=== PATIENT | female | born 1995 | race African-American/Black ===

== ENCOUNTER 2017-08-17 18:27 | Emergency (ER) | payer SELFPAY ==
[~2017-08-17] VITALS: Ht 172.7 cm; Wt 63.5 kg
[2017-08-17 19:07] VITALS: BP 94/75
[2017-08-17 19:18] LABS: BASOPHILS % (AUTO) 0.7 % (0.0-2.0); EOSINOPHILS % (AUTO) 1.6 % (0.0-3.0); LYMPHOCYTES % (AUTO) 24.3 % (20.0-45.0); MEAN CORPUSCULAR HEMOGLOBIN 29.1 PG (27.0-31.0); MEAN CORPUSCULAR HGB CONC 34.3 G/DL (32.0-36.0); MEAN CORPUSCULAR VOLUME 85 FL (80-99); MEAN PLATELET VOLUME 6.5 FL (6.5-10.1); NEUTROPHILS % (AUTO) 64.5 % (45.0-75.0); PLATELET COUNT 220 K/UL (150-450); RED BLOOD COUNT 4.34 M/UL (4.20-5.40); WHITE BLOOD COUNT 8.8 K/UL (4.8-10.8)
[2017-08-17 19:19] LABS: APPEARANCE,URINE CLEAR; KETONES,URINE 1+ (NEGATIVE); LEUKOCYTE ESTERASE ,URINE NEGATIVE (NEGATIVE); NITRITE,URINE NEGATIVE (NEGATIVE); PH,URINE 6 (4.5-8.0); PROTEIN,URINE 1+ (NEGATIVE); UROBILINOGEN,URINE 1 MG/DL (0.0-1.0)
[2017-08-17 19:27] LABS: BACTERIA,URINE OCCASIONAL /HPF; SQUAMOUS EPITHELIAL CELL,UR FEW /LPF (NONE/OCC); WBC,URINE 0-2 /HPF (0 - 2)
[2017-08-17 19:35] LABS: ALANINE AMINOTRANSFERASE 17 U/L (3-33); ANION GAP 14 (5-15); ASPARTATE AMINO TRANSFERASE 17 U/L (5-40); CALCIUM 8.9 mg/dL (8.6-10.2); CARBON DIOXIDE 21 mEQ/L (20-30); CHLORIDE 98 mEQ/L (98-107); CREATININE 0.8 mg/dL (0.5-0.9); GLOMERULAR FILTRATION RATE > 60 mL/min (>60); HEMOLYSIS 2; POTASSIUM 3.5 mEQ/L (3.4-4.9); SODIUM 133 mEQ/L (135-145); TOTAL PROTEIN 7.4 g/dL (6.6-8.7)
[2017-08-17] MEDS ORDERED: ZOFRAN ODT4 MG ORAL (20:13)
[2017-08-17 20:20] VITALS: BP 107/74
[2017-08-17 20:25] VITALS: BP 107/74
--- NOTE | 2017-08-17 20:28 | Emergency Room Report ---
History of Present Illness General Chief Complaint: Complications Source: Patient Present Illness HPI [id number] [employer] patient with nausea and "cant keep anything down". States 9 weeks Just started following with OB last week. On vitamins, iron and reglan Had told OB about nausea, was given Rx Reglan. Was told if she continued to have trouble with nausea/vomiting, "go to ER." She denies abd pain, vaginal bleeding, urinary complaints, SOB, chest pain 2 previous pregnancies resulted in miscarriage and No other medical problems Allergies: Coded Allergies: No Known Allergies (Unverified , 08/17/17) Patient History Past Medical History: none Past Surgical History: none Pertinent Family History: none Social History: Denies: smoking, alcohol use, drug use Now: Yes : 3 Para: 0 Immunizations: UTD Reviewed Nursing Documentation: PMH: Agreed, PSxH: Agreed Review of Systems All Other Systems: negative except mentioned in HPI Physical Exam Vital Signs Date Time Temp Pulse Resp B/P (MAP) Pulse Ox O2 Delivery O2 Flow Rate FiO2 08/17/17 18:33 98.4 89 20 131/82 100 Room Air Sp02 EP Interpretation: reviewed, normal General Appearance: normal inspection, well appearing, no apparent distress, alert, GCS 15, non-toxic Head: normocephalic, atraumatic Eyes: bilateral eye PERRL, bilateral eye EOMI ENT: normal ENT inspection, hearing grossly normal, normal voice Neck: normal inspection, full range of motion, supple, no bony tend Respiratory: normal inspection, lungs clear, normal breath sounds, no respiratory distress, no retraction, no wheezing Cardiovascular #1: regular rate, rhythm, no edema Gastrointestinal: normal inspection, normal bowel sounds, non tender, soft, no guarding, no hernia, other - Gravid uterus Genitourinary: no CVA tenderness Musculoskeletal: normal inspection, back normal, normal range of motion, Carlos' s Sign negative Neurologic: normal inspection, alert, oriented x3, responsive, oil program compliance specialist III-XII nml as tested, motor strength/tone normal, speech normal Psychiatric: normal inspection, judgement/insight normal, mood/affect normal Skin: normal inspection, normal color, no rash Medical Decision Making Diagnostic Impression: Primary Impression: Nausea and vomiting during ER Course VSS. Afebrile. Labs reviewed: No leuks. H&H stable. No metabolic derangement. beta quant reviewed, appropriate No WBCs in urine Was hydrated with IVF and IV zofran Tolerating PO in ED - asking for food. Was given crackers, water Rx Zofran in place of reglan Advised small frequent meals, suzy Has OB followup tomorrow DC home Last Vital Signs Date Time Temp Pulse Resp B/P (MAP) Pulse Ox O2 Delivery O2 Flow Rate FiO2 08/17/17 19:07 98.4 76 22 94/75 100 Room Air Status: improved Disposition: HOME, SELF-CARE Condition: Improved Scripts Ondansetron Odt* (ZOFRAN ODT*) 4 Mg Tab.rapdis 4 MG ORAL BID Y for Nausea & Vomiting for 7 Days, #14 TAB 0 Refills Prov: DIANA NGUYỄN M.D. 08/17/17 Patient Instructions: Labor Information, Morning Sickness, [id number] Additional Instructions: - Take Zofran instead of reglan/metoclopramide twice daily as needed for nausea - Eat multiple small meals during the day - Can also do suzy, suzy tea for nausea - Follow up with your OB tomorrow DIANA NGUYỄN M.D. Aug 17, 2017 20:28
== END 2017-08-17 20:25 | disposition home or self-care (01) ==
LOC: EMR 20:22
DX: R11.2 Nausea with vomiting, unspecified (principal); O26.91 Pregnancy related conditions, unspecified, first trimester; Z3A.09 9 weeks gestation of pregnancy
CPT/HCPCS: 36415; 80053; 81003; 81025; 84702; 85025; 96360; 96372; 99284; J2405